=== PATIENT | female | born 1980 | race Caucasian/White ===

== ENCOUNTER 2016-09-13 02:16 | Inpatient (IN) | payer OTHER ==
[~2016-09-13] VITALS: Ht 160 cm; Wt 74.8 kg
[2016-09-13 03:20] LABS: RED BLOOD COUNT 4.58 M/UL (4.00-5.10)
[2016-09-14 03:34] LABS: HEMOGLOBIN 12.1 gm/dl (12.3-15.3)
[2016-09-14] MEDS ORDERED: MIRALAX PACK 171 PKT PO (12:55)
== END 2016-09-14 15:50 | disposition home or self-care (01) | DRG 774 ==
LOC: GENOP 02:16 → OB 03:04
PROVIDERS: Obstetrics & Gynecology; ADMIT Obstetrics & Gynecology
PROC: 10E0XZZ Delivery of Products of Conception, External Approach (ICD-10-PCS; principal; 2016-09-13)
PROC: 0KQM0ZZ Repair Perineum Muscle, Open Approach (ICD-10-PCS; 2016-09-13)
DX: O10.92 Unspecified pre-existing hypertension complicating childbirth (principal); O99.42 Diseases of the circulatory system complicating childbirth; Z3A.39 39 weeks gestation of pregnancy; Z37.0 Single live birth; I34.1 Nonrheumatic mitral (valve) prolapse; O70.1 Second degree perineal laceration during delivery; Z87.42 Personal history of other diseases of the female genital tract
CPT/HCPCS: 36415; 51702; 82800; 83518; 85014; 85018; 85025; J2590; J2795; J3010; J3430; J7120

== ENCOUNTER → 2021-01-29 | Outpatient (CLI) | payer OTHER ==
[~2021-01-29] MED LIST: MIRALAX PACK 171 PKT PO
== END ==
LOC: HEART 5 09:14
DX: R00.2 Palpitations (principal)